=== PATIENT | female | born 1940 | race Caucasian/White ===

== ENCOUNTER 2021-08-05 08:04 | Emergency (ER) | payer OTHER, MEDICARE ==
[~2021-08-05] VITALS: Ht 157.5 cm; Wt 61.7 kg
== END 2021-08-05 09:41 | disposition home or self-care (01) ==
LOC: ER 08:04
DX: S00.81XA Abrasion of other part of head, initial encounter (principal); S00.31XA Abrasion of nose, initial encounter; I10 Essential (primary) hypertension; Z88.5 Allergy status to narcotic agent; W01.0XXA Fall on same level from slipping, tripping and stumbling without subsequent striking against object, initial encounter
CPT/HCPCS: 70450; 99283-25